=== PATIENT | male | born 1975 | race Caucasian/White ===

== ENCOUNTER 2017-07-16 09:09 | Inpatient (IN) | payer MEDICAID ==
[~2017-07-16] VITALS: Ht 177.8 cm; Wt 109.7 kg
--- NOTE | ~2017-07-16 | OP ---
PATIENT NAME: NIEVES ROSALES MEDICAL RECORD: [id number] :71 LOCATION:D.M2 D.2138 ADMISSION DATE:07/16/17 SURGEON: CHRISTAL BETTS MD DATE OF OPERATION: 07/17/2017 PROCEDURE: Left heart catheterization, 4-vessel arteriography, right femoral artery approach. CATHETERS: A 5-Indonesian sheath, 5/4 left and right Skylar, 5/4 pig. The procedure was well tolerated. The patient returned to the brewer, sheath removed. ExoSeal device placed. FINDINGS: Left ventriculography in 30-degree ORONA view: Normal wall motion, normal systolic function. CORONARY ANATOMY. LEFT MAIN: Left main is free of disease. LAD: An area of previous stenting is widely patent. No evidence of progression of seneca disease. CIRCUMFLEX: Free of disease. RIGHT CORONARY ARTERY: Again, widely patent stent, no progression, free of disease. FOUR-VESSEL ARTERIOGRAPHY: Each carotid was selectively engaged. RIGHT: Right common carotid is smooth-walled vessel, free of disease. Right external carotid is smooth-walled vessel, free of disease. Right internal carotid is smooth-walled vessel, free of disease. LEFT: Left common carotid is smooth-walled vessel, free of disease. Left external carotid is smooth-walled vessel, free of disease. Left internal carotid is smooth-walled vessel, free of disease. IMPRESSION: No significant plaque at the carotid system. TRANSINT:[id number] Voice Confirmation ID: [id number] DOCUMENT ID: [id number] CHRISTAL BETTS MD at 0919 CC: [id number] DICTATION DATE: 07/17/17 1108 CAMPAIGN DIRECTOR: 07/17/17 1251 DIS IN 07/18/17 [facility] [address] [place] [address]
--- NOTE | ~2017-07-16 | CN ---
PATIENT NAME:NIEVES ROSALES MEDICAL RECORD: [id number] : 71 LOCATION:D.[place] D.2138 ADMIT DATE: 07/16/17 ACCOUNT: [id number] CONSULTING PHYSICIAN: CHRISTAL BETTS MD REFERRING PHYSICIAN: AZ LARIOS MD DATE OF CONSULTATION: 07/17/2017 HISTORY OF PRESENT ILLNESS: A 42-year-old gentleman with known history of coronary artery disease, status post intervention, admitted with chest pain, has been noticing exertional dyspnea. Long-term smoking. He has questionable right middle lobe infiltrate; however, symptoms are more consistent with angina. He had episode of near syncope yesterday, true amaurosis with shading coming down the eyes. We are asked to see me concerning his cardiovascular status. PAST MEDICAL HISTORY: Includes: 1. History of coronary artery disease as described above. 2. Hypertension. 3. Hyperlipidemia. 4. Diabetes mellitus. 5. Ongoing tobacco use. ALLERGIES: None known. MEDICATIONS: Typically include Hyzaar 100/25 every day, Pravachol 20 every day, Glucophage 3 g b.i.d., aspirin daily. SOCIAL HISTORY: , smokes about a pack a day. No set exercise program. Easily takes care of his ADLs. REVIEW OF SYSTEMS: The patient reports easy bruising but reports no swollen glands. The patient reports no fever, no night sweats, no significant weight gain, no significant weight loss. No significant exercise tolerance. The patient reports no dry eyes, no irritation, no vision change. Patient reports no difficulty hearing and no ear pain. Patient reports no frequent nose bleeds or nose and sinus problems. Patient reports on arm pain on exertion. No shortness of breath while lying down. No history of heart murmur. Patient reports no cough, no wheezing or coughing up blood. Patient reports no abdominal pain, no vomiting. Normal appetite. No diarrhea and not vomiting blood. No nausea and no constipation. Patient reports no incontinence. No difficulty urinating. No hematuria. No increased frequency. Patient reports no muscle aches. No weakness, no arthralgias, no back pain. No swelling of the extremities. Patient reports no abnormal mole, no jaundice, no rashes. Reports no loss of consciousness. No weakness and no numbness. No seizures, dizziness, or headaches. The patient reports no depression, no sleep disturbance, feeling safe in a relationship and no alcohol abuse. Patient reports on fatigue. Reports no runny nose or sinus pressure. No itching, no hives, and no frequent sneezing. PHYSICAL EXAMINATION: GENERAL: Pleasant gentleman in no acute distress. VITAL SIGNS: Blood pressure 117/71, pulse 85 and regular. HEENT: Normocephalic and atraumatic. NECK: Questionable left carotid bruit. HEART: Regular, II/ systolic ejection murmur. LUNGS: Fair air excursion. CONSULT REPORT [id number] NIEVES ROSALES ABDOMEN: Soft and nontender. Pulses 2+. There is no edema. NEUROLOGIC: Grossly intact. DIAGNOSTIC DATA: ECG shows nonspecific ST-T changes. IMPRESSION: Acute coronary syndrome, TIA. PLAN: For catheterization, 4-vessel. TRANSINT:[id number] Voice Confirmation ID: [id number] DOCUMENT ID: [id number] CHRISTAL BETTS MD at 0919 CC: [id number] DICTATION DATE: 07/17/17 0847 LICENSED OCCUPATIONAL THERAPY ASSISTANT: 07/17/17 1212 DIS IN 07/18/17 [facility] [address] [place] [address]
--- NOTE | ~2017-07-16 | HEMODYNAMI ---
PATIENT:NIEVES ROSALES MEDICAL RECORD: [id number] : 71 LOCATION:[facility] D.2138 ADMISSION DATE: 07/16/17 Generatedon:07/17/201711:06 Patient name: NIEVES RSOALES Patient #: [id number] SSN: D OB: 1975 Date of study: 07/17/2017 Page: Of Hemodynamic Procedure Report Patient Data Patient Demographics Procedure consent was obtained First Name: NIEVES Gender: Male Last Name: CONNIE : 1975 Middle Initial: W Age: 42 year(s) Patient #: [id number] Race: Additional ID: [id number] Contact details Address: [facility] [address] State: [place] City: [place] Zip code: [address] Past Medical History History of disease Date Diagnosis Comments CAD Allergies Allergen Reaction Date Comments Reported Codeine 09/24/2014 Other allergy 07/17/2017 Admission Admission Data Admission Date: 07/16/2017 Admission Time: 14:46 Room #: D.2138 Procedure Procedure Types Cath Procedure Diagnostic Procedure [facility] w/Coronaries Peripheral Cath Diagnostic Procedure Cath Peripheral Four Vessel Arteriogram Procedure Description Procedure Date Procedure Date: 07/17/2017 Procedure Start Time: 10:54 Procedure End Time: 11:04 Procedure Staff Name Function Ash Casey MD Performing Physician Annamarie Zarco RT Monitor Mary Esparza RT Scrub Oh Kerr RN Nurse Procedure Data Cath Procedure Fluoroscopy Diagnostic fluoroscopy Total fluoroscopy Time: 2 time: 2 min min Diagnostic fluoroscopy Total fluoroscopy dose: 627 dose: 627 mGy mGy Contrast Material Contrast Material Type Amount (ml) Isovue 300 72 Entry Location Entry Primary Successful Side Size Upsize Upsize Entry Closure Succes sful Closure Location (Fr) 1 (Fr) 2 (Fr) Remarks Device Remarks Femoral Right 5 Fr Exoseal artery Estimated blood loss: 10 ml Diagnostic catheters Device Type Used For End Catheter Placement MULTIPACK JL 4.0 5Fr Procedure catheter MULTIPACK 3DRC 5Fr Procedure catheter MULTIPACK Pigtail 5 Fr Ventriculography catheter Procedure Complications No complications Procedure Medications Medication Administration Route Dosage Oxygen NC 2 l/min Heparin Flush Bag added to field 2 bags (1000units/500ml NS) 0.9% NaCl I.V. ml/hr Fentanyl I.V. 100 mcg Versed I.V. 2 mg Fentanyl I.V. 100 mcg Versed I.V. 2 mg Hemodynamics Rest Heart Rate: 89 (bpm) Pressure Samples Time Site Value (mmHg) Purpose Heart Use Rate(bpm) 11:00 LV 114/12,19 EDP 89 Gradients Valve Time Site Site Mean SEP/DFP Peak To Heart Use 1 2 (mmHg) (sec/min) Peak Rate (mmHg) (bpm) Aortic 11:01 LV AO 89 Snapshots Pre Cath Intra NCS Post Cath Vital Signs Time Heart Resp SPO2 etCO2 NIBP Rhythm Pain Sedation Rate (ipm) (%) (mmHg) (mmHg) Status Level (bpm) 10:40:47 87 16 107/79(94) NSR 0 (11) 10(A) , No pain 10:45:58 89 16 98 20.4 117/77(95) NSR 0 (11) 10(A) , No pain 10:50:37 89 15 97 41.7 108/69(83) NSR 0 (11) 10(A) , No pain 10:55:18 84 16 98 43.9 114/74(95) NSR 0 (11) 9(A) , No pain 11:00:45 97 16 98 43.2 95/60(72) NSR 0 (11) 9(A) , No pain 11:02:46 86 16 95 44.7 92/67(82) NSR 0 (11) 9(A) , No pain Medications Time Medication Route Dose Verified Delivered Reason Notes Effec tiveness by by 10:45:45 Oxygen NC 2 Ash Casiano Per l/min [facility] Kirk Kerr RN physician 10:45:56 Heparin Flush added 2 Ash Casiano used for Bag to bags [facility] Kirk Kerr RN procedure (1000units/500ml field WALSH NS) 10:46:04 0.9% NaCl I.V. ml/hr Ash Casiano Per [facility] Kirk Kerr RN physician 10:53:57 Fentanyl I.V. 100 Ash Casiano for mcg [facility] Kirk Kerr RN sedation 10:54:03 Versed I.V. 2 mg Ash Casiano for [facility] Kerr RN sedation 11:00:26 Fentanyl I.V. 100 Ash Casiano for [facility] Kirk Kerr RN sedation 11:00:30 Versed I.V. 2 mg [address] [facility] Kerr RN sedation Procedure Log Time Note 10:21:08 Oh Kerr RN sent for patient. Start room use. 10:21:29 Time tracking: Call back 10:21:37 Plan of Care:Hemodynamics will remain stable., Cardiac rhythm will remain stable., Comfort level will be maintained., Respiratory function will remain adequate., Patient/ family verbilizes understanding of procedure., Procedure tolerated without complication., Recovers from procedure without complications.. 10:35:14 Patient received from PCU to CCL 1 Alert and oriented. Tansferred to table in Supine position. 10:35:14 Warm blankets applied, and anna hugger turned on for patient comfort. 10:35:15 Correct patient and procedure confirmed by team. 10:35:17 Signed procedure consent form obtained from patient. 10:35:17 ECG and BP/O2 sat monitors applied to patient. 10:35:18 Full Disclosure recording started 10:39:56 Vital chart was started 10:41:35 H&P Date Dictated: 07/16/2017 Within 30 days and on chart.. 10:41:46 Pre-procedure instructions explained to patient. 10:41:49 Family in patients room. 10:41:52 Patient NPO since Breakfast. 10:42:09 Patient allergic to Other allergy 10:42:13 Is the patient allergic to Iodine/contrast media? No. 10:42:14 Was the patient premedicated? Yes 10:42:16 Is patient on blood thinner?No 10:42:19 Patient diabetic? Yes. 10:42:21 If diabetic: On Metformin? Yes 10:42:24 If on Metformin: Last Dose? 07/16/2017 10:42:29 Snore? Yes 10:42:31 Sleep apnea? No 10:42:37 Dentures? No ? 10:42:49 IV patent on arrival in right forearm with 0.9% NaCl at KVO. 10:42:54 Lab results completed and on chart. 10:42:58 Right groin area was prepped with chlora-prep and draped in sterile fashion 10:43:00 Alarms reviewed by R. N. 10:43:00 Sharps counted by scrub and verified by R.N. 10:43:03 Physician paged 10:45:45 Oxygen 2 l/min NC was administered by Oh Kerr RN; Per physician; 10:45:56 Heparin Flush Bag (1000units/500ml NS) 2 bags added to field was administered by Oh Kerr RN; used for procedure; 10:46:04 0.9% NaCl ml/hr I.V. was administered by Oh Kerr RN; Per physician; 10:52:10 Physician arrived 10:52:12 --------ALL STOP TIME OUT------ 10:52:12 Final Timeout: patient, procedure, and site verified with staff and physician. All members of the team are in agreement. 10:52:14 Right groin site verified by team. 10:52:19 Physical assessment completed. ASA score P 2 - A patient with mild systemic disease as per Ash Casey MD. 10:52:29 Sedation plan: IV Moderate Sedation Medication:Versed, Fentanyl 10:53:10 Ash Casey MD present and monitoring patient for TIVA. 10:53:22 Use device set Femoral Dx 10:53:57 Fentanyl 100 mcg I.V. was administered by Oh Kerr RN; for sedation; 10:53:59 Procedure started. 10:54:03 Versed 2 mg I.V. was administered by Oh Kerr RN; for sedation; 10:54:23 Local anesthetic to right femoral artery with Lidocaine 2% by Ash Casey MD.INITIAL ACCESS ONLY 10:54:37 A 5 Fr sheath was inserted into the Right Femoral artery 10:55:55 Is patient on blood thinner?Yes 10:55:57 ACC The patient was administered the following blood thiners within the last 24 hours: ACCPlavix 10:56:27 ACIST Syringe (49883) opened to sterile field. 10:56:28 Bag Decanter (2002) opened to sterile field. 10:56:29 Medline Cath Pack ([id number]) opened to sterile field. 10:56:30 SHEATH 5FR Dawson (LQJ673) opened to sterile field. 10:56:31 DIAGNOSTIC WIRE .035 260cm J wire (113273) opened to sterile field. 10:56:35 ACIST Hand Control (15823) opened to sterile field. 10:56:35 ACIST Manifold (37438) opened to sterile field. 10:56:39 DIAGNOSTIC Multipack 5Fr catheter set (DI2135) opened to sterile field. 10:56:45 A MULTIPACK JL 4.0 5Fr catheter was advanced over the wire and used for Procedure. 10:56:51 Tegaderm 4 x 4 (1626W) opened to sterile field. 10:56:52 PERCUTANEOUS ENTRY 19GA needle opened to sterile field. 10:57:18 LCA angiography performed. 10:57:20 Catheter removed. 10:57:32 A MULTIPACK 3DRC 5Fr catheter was advanced over the wire and used for Procedure. 10:57:57 RCA angiography performed. 10:58:42 Right carotid angiography performed. 10:59:06 Left carotid angiography performed. 10:59:23 Catheter removed. 10:59:33 A MULTIPACK Pigtail 5 Fr catheter was advanced over the wire and used for Ventriculography. 11:00:02 EXOSEAL 5Fr (EX500) opened to sterile field. 11:00:11 LV gram done using ORONA 11:00:26 Fentanyl 100 mcg I.V. was administered by Oh Kerr RN; for sedation; 11:00:30 Versed 2 mg I.V. was administered by Oh Kerr RN; for sedation; 11:01:08 EF : 55 % 11:01:10 LV hemodynamics recorded. 11:01:12 Catheter removed. 11:01:28 Sheath removed intact; hemostasis achieved with Exoseal to the Right Femoral artery. 11:01:31 Procedure ended.(Physican Out) 11:01:42 Fluoroscopy time 02.00 minutes. 11:01:46 Fluoroscopy dose: 627 mGy 11::46 Flurop Dose total: 627 11::52 Contrast amount:Isovue 300 72ml. 11:01:55 Sharps counted by scrub and verified by R.N. 11:01:58 Insertion/operative site no bleeding no hematoma. 11:02:02 Post right femoral artery:stable 11:02:07 Post-procedure physical assessment completed. ASA score P 2 - A patient with mild systemic disease as per Ash Casey MD. 11:02:10 Post procedure rhythm: unchanged. 11:02:50 Estimated blood loss: 10 ml 11:02:53 Post procedure instruction explained to patient.Patient verbalizes understanding. 11:03:27 Procedure and supply charges have been captured, reviewed, submitted and are correct. 11:04:43 Procedure Complication : No complications 11:04:45 Vital chart was stopped 11:04:46 See physician's report for complete and final results. 11:04:49 Report given to [facility]. 11:04:53 Patient transfered to [facility] with Bed. 11:04:55 Procedure ended. 11:04:55 Full Disclosure recording stopped 11:04:58 End room use (Document Last) Device Usage Item Name Manufacture Quantity Catalog Hospital Part Current Minimal Lot# / Number Charge Number Stock Stock Serial# Code ACIST Acist 1 56506 383735 434524 060936 20 Syringe Medical (51366) Systems Inc Bag Decanter Microtek 1 2001S 833363 02652 984710 5 () Medical Inc. Medline Cath Cardinal 1 [id number] 642980 77180 354839 5 Pack Health ([id number]) SHEATH 5FR Terumo 1 [id number] 346112 060635 529360 40 Dawson (YNZ465) DIAGNOSTIC St Eben 1 388265 327977 862143 047431 30 WIRE .035 260cm J wire (545896) ACIST Hand Acist 1 31255 219922 970513 775133 5 Control Medical (31752) Systems Inc ACIST Acist 1 14398 756358 887578 487731 5 Manifold Medical (44414) Systems Inc DIAGNOSTIC Cardinal 1 [id number] 308357 54524 307271 30 Multipack Health 5Fr catheter set ([id number]) MULTIPACK JL Cardinal 1 [id number] 5 4.0 5Fr Health catheter Tegaderm 4 x 3M 1 1626W 545450 715286 993795 5 4 (1626W) PERCUTANEOUS Cook Medical 1 T15199 221384 285845 5 ENTRY 19GA needle MULTIPACK Cardinal 1 133567 5 3DRC 5Fr Health catheter MULTIPACK Cardinal 1 103902 5 Pigtail 5 Fr Health catheter EXOSEAL 5Fr Cardinal 1 EX500 723297 688605 766377 10 (EX500) Health Signature Audit [place] Stage Time Signature Unsigned Intra-Procedure 07/17/2017 Annamarie Zarco 11:05:58 AM RT(R) Signatures Monitor : Annamarie Zarco Signature : RT Date : Time : [address] [address]
[~2017-07-16 09:09] MED LIST: BAYER CHEWABLE81 MG PO; BRILINTA90 MG PO; BYSTOLIC10 MG PO; COZAAR50 MG PO; DOXYCYCLINE HY100 M2 PO; GLUCOPHAGE1000 MG PO; GLUCOPHAGE850 MG PO; HYZAAR 100-25 T1 TAB PO; NORVASC2.5 MG PO; PLAVIX75 MG PO; PRAVASTATIN SOD10 MG PO
[2017-07-16 09:49] LABS: BASOPHILS 0.3 % (0-2); EOSINOPHILS 1.6 % (0-7); HEMATOCRIT 46.1 % (42.0-54.0); HEMOGLOBIN 15.7 g/dL (13.5-17.5); IMMATURE GRANULOCYTES 0.3 % (0-5); LYMPHOCYTES 23.8 % (15-50); MCH 30.3 pg (26.0-34.0); MCHC 34.1 g/dL (31.0-37.0); MCV 88.8 fL (80.0-100.0); MEAN PLATELET VOLUME 9.9 fL (7.4-10.4); PLATELET COUNT 205 10x3/uL (130-400); RBC 5.19 10x6/uL (4.20-6.10); RDW 12.1 % (11.5-14.5); WBC 6.9 10x3/uL (4.8-10.8)
[2017-07-16 10:05] LABS: ALBUMIN 3.9 g/dL (3.4-5.0); ALKALINE PHOSPHATASE 65 U/L (46-116); ALT (SGPT) 33 U/L (10-68); BILIRUBIN - TOTAL 0.39 mg/dL (0.2-1.3); CALC OSMOLALITY 280 mosm/kg (275-300); CALCIUM 9.4 mg/dL (8.5-10.1); CARBON DIOXIDE 27.4 mmol/L (21.0-32.0); CHLORIDE - SERUM 102 mmol/L (98-107); CREATININE - SERUM 1.2 mg/dL (0.6-1.3); GLUCOSE 201 mg/dL (74-106); POTASSIUM - SERUM 4.2 mmol/L (3.5-5.1); PROTEIN - SERUM 7.5 g/dL (6.4-8.2); SODIUM 136 mmol/L (136-145); UREA NITROGEN 22 mg/dL (7-18); eGFR NON AFRICAN AMERICAN 70 mL/min (90-120)
[2017-07-16 10:15] LABS: CHOL - HDL RATIO 7.1 ratio (2.3-4.9); CHOLESTEROL, TOTAL 198 mg/dL (0-200); CKMB 1.3 U/L (0.0-3.6); CREATINE KINASE 122 UL (21-232); HDL CHOLESTEROL 28 mg/dL (32-96); LDL CHOLESTEROL 119 mg/dL (0-100); LDL-HDL RATIO 4.3 ratio (1.5-3.5); TRIGLYCERIDE 257 mg/dL (30-200); TROPONIN-I < 0.017 ng/mL (0.000-0.060)
[2017-07-16 10:53] LABS: INR 0.96 (0.85-1.17); PROTIME 12.4 SECONDS (11.6-15.0)
[2017-07-16 11:09] LABS: APPEARANCE HAZY (CLEAR); COLOR YELLOW (YELLOW)
[2017-07-16 11:10] LABS: AMORPHOUS SEDIMENT >1+ /lpf (NONE SEEN); BACTERIA FEW /hpf (NONE SEEN); BILIRUBIN NEGATIVE (NEGATIVE); EPITHELIAL CELLS 0-5 /hpf (0-5); GLUCOSE 100 mg/dL (NEGATIVE); GRANULAR CAST RARE /lpf (NONE SEEN); KETONE NEGATIVE (NEGATIVE); MUCUS <1+ /lpf (NONE SEEN); NITRITE NEGATIVE (NEGATIVE); PROTEIN NEGATIVE (NEGATIVE); UDS - AMPHET NEGATIVE QUAL (NEGATIVE); UDS - BARB NEGATIVE QUAL (NEGATIVE); UDS - BENZO NEGATIVE QUAL (NEGATIVE); UDS - COCAINE NEGATIVE QUAL (NEGATIVE); UDS - OPIATE NEGATIVE QUAL (NEGATIVE); UDS - PCP NEGATIVE QUAL (NEGATIVE); UDS - THC NEGATIVE QUAL (NEGATIVE); UROBILINOGEN NORMAL (NORMAL); WHITE CELLS - URINE 0-5 /hpf (0-5)
[2017-07-16 16:48] VITALS: BP 106/77; BMI 35.0
[2017-07-16 17:18] VITALS: BP 109/79
[2017-07-16 19:38] LABS: CKMB 0.8 U/L (0.0-3.6); CREATINE KINASE 84 UL (21-232)
[2017-07-16 19:41] LABS: TROPONIN-I < 0.017 ng/mL (0.000-0.060)
[2017-07-16 20:38] VITALS: BP 111/70
[2017-07-17] VITALS (7 sets, daily range): BP systolic 101–127; BP diastolic 57–88; Ht 177.8 cm; Wt 109.7 kg
[2017-07-17 00:56] LABS: CKMB 0.8 U/L (0.0-3.6); CREATINE KINASE 64 UL (21-232); TROPONIN-I < 0.017 ng/mL (0.000-0.060)
[2017-07-17 07:58] LABS: CKMB 0.6 U/L (0.0-3.6); CREATINE KINASE 66 UL (21-232)
[2017-07-17 07:59] LABS: TROPONIN-I < 0.017 ng/mL (0.000-0.060)
[2017-07-17 08:54] LABS: BASOPHILS 0.1 % (0-2); EOSINOPHILS 0.8 % (0-7); HEMATOCRIT 44.7 % (42.0-54.0); HEMOGLOBIN 14.8 g/dL (13.5-17.5); IMMATURE GRANULOCYTES 0.3 % (0-5); LYMPHOCYTES 13.1 % (15-50); MCH 29.8 pg (26.0-34.0); MCHC 33.1 g/dL (31.0-37.0); MCV 89.9 fL (80.0-100.0); MEAN PLATELET VOLUME 10.4 fL (7.4-10.4); MONOCYTES 7.7 % (2-11); PLATELET COUNT 201 10x3/uL (130-400); RBC 4.97 10x6/uL (4.20-6.10); RDW 12.1 % (11.5-14.5); WBC 12.5 10x3/uL (4.8-10.8)
[2017-07-17 09:34] LABS: ANION GAP 14.5 mmol/L (8-16); CALCIUM 8.7 mg/dL (8.5-10.1); CARBON DIOXIDE 23.9 mmol/L (21.0-32.0); CREATININE - SERUM 1.3 mg/dL (0.6-1.3); POTASSIUM - SERUM 4.4 mmol/L (3.5-5.1)
[2017-07-17] MEDS ORDERED: HCTZ25 MG PO (17:06)
[2017-07-17] MEDS ORDERED: PRINIVIL20 MG PO (17:06)
[2017-07-18 00:47] VITALS: BP 120/84
[2017-07-18 06:44] VITALS: BP 117/83
[2017-07-18 06:44] LABS: BASOPHILS 0.3 % (0-2); EOSINOPHILS 1.7 % (0-7); HEMATOCRIT 43.1 % (42.0-54.0); HEMOGLOBIN 14.3 g/dL (13.5-17.5); IMMATURE GRANULOCYTES 0.4 % (0-5); LYMPHOCYTES 26.1 % (15-50); MCH 29.5 pg (26.0-34.0); MCHC 33.2 g/dL (31.0-37.0); MEAN PLATELET VOLUME 10.2 fL (7.4-10.4); MONOCYTES 11.1 % (2-11); NEUTROPHILS 60.4 % (40-80); PLATELET COUNT 178 10x3/uL (130-400); RBC 4.84 10x6/uL (4.20-6.10); RDW 12.1 % (11.5-14.5)
[2017-07-18 06:45] LABS: WBC 7.6 10x3/uL (4.8-10.8)
[2017-07-18 06:55] LABS: CALC OSMOLALITY 278 mosm/kg (275-300); CALCIUM 8.2 mg/dL (8.5-10.1); CARBON DIOXIDE 25.8 mmol/L (21.0-32.0); CHLORIDE - SERUM 104 mmol/L (98-107); GLUCOSE 196 mg/dL (74-106); POTASSIUM - SERUM 4.3 mmol/L (3.5-5.1); SODIUM 136 mmol/L (136-145); UREA NITROGEN 17 mg/dL (7-18); eGFR NON AFRICAN AMERICAN 86 mL/min (90-120)
[2017-07-18 08:11] VITALS: BP 130/76
[2017-07-18] MEDS ORDERED: LEVAQUIN750 MG PO (11:07)
[2017-07-18 11:26] VITALS: BP 136/71
== END 2017-07-18 13:27 | disposition home or self-care (01) | DRG 190 ==
LOC: D.ER 09:09 → D.M2 14:46
PROVIDERS: Emergency Medicine; Internal Medicine Interventional Cardiology; Internal Medicine Nephrology; Nurse Practitioner Family
PROC: 4A023N7 Measurement of Cardiac Sampling and Pressure, Left Heart, Percutaneous Approach (ICD-10-PCS; 2017-07-17)
PROC: B3151ZZ Fluoroscopy of Bilateral Common Carotid Arteries using Low Osmolar Contrast (ICD-10-PCS; 2017-07-17)
PROC: B3181ZZ Fluoroscopy of Bilateral Internal Carotid Arteries using Low Osmolar Contrast (ICD-10-PCS; 2017-07-17)
PROC: B31C1ZZ Fluoroscopy of Bilateral External Carotid Arteries using Low Osmolar Contrast (ICD-10-PCS; 2017-07-17)
PROC: B2111ZZ Fluoroscopy of Multiple Coronary Arteries using Low Osmolar Contrast (ICD-10-PCS; principal; 2017-07-17 11:00)
PROC: B2151ZZ Fluoroscopy of Left Heart using Low Osmolar Contrast (ICD-10-PCS; 2017-07-17 11:00)
DX: J44.0 Chronic obstructive pulmonary disease with (acute) lower respiratory infection (principal); J18.9 Pneumonia, unspecified organism; J98.11 Atelectasis; N17.9 Acute kidney failure, unspecified; I10 Essential (primary) hypertension; E78.5 Hyperlipidemia, unspecified; E11.9 Type 2 diabetes mellitus without complications; R55 Syncope and collapse; I25.10 Atherosclerotic heart disease of native coronary artery without angina pectoris; Z95.5 Presence of coronary angioplasty implant and graft; Z72.0 Tobacco use